=== PATIENT | male | born 1960 | race Caucasian/White ===

== ENCOUNTER 2016-09-02 20:02 | Emergency (ER) | payer OTHER ==
[2016-09-02 22:09] VITALS: BP 154/76
[2016-09-02] MEDS ORDERED: DOXYcycline CAP(*) 100 MG PO ONE (22:09)
--- NOTE | 2016-09-02 22:09 | UC ---
Skin Complaint HPI - HPI Summary HPI Summary: Tick attached to right side of back--- burnt it with a match but was unable to remove it--may have been attached 24-36 hours - History of Current Complaint Chief Complaint: UCSkin Time Seen by Provider: 09/02/16 22:03 Stated Complaint: TICK Hx Obtained From: Patient Onset/Duration: Sudden Onset, Lasting Days - 1, Still Present Skin Exposure Onset/Duration: Days Ago - 1 Timing: Constant Onset Severity: Mild Current Severity: Mild Pain Intensity: 0 Pain Scale Used: 0-10 Numeric Location: Diffuse Character: Redness Aggravating: Nothing Alleviating: Nothing Associated Signs & Symptoms: Positive: Negative Related History: Possible Reaction to: Insect - Allergy/Home Medications Allergies/Adverse Reactions: Allergies Allergy/AdvReac Type Severity Reaction Status Date / Time No Known Allergies Allergy Verified 09/02/16 22:09 Review of Systems Constitutional: Negative Skin: Other - tick right side of mid-lower back Eyes: Negative ENT: Negative Respiratory: Negative Cardiovascular: Negative Gastrointestinal: Negative Genitourinary: Negative Motor: Negative Neurovascular: Negative Musculoskeletal: Negative Neurological: Negative Psychological: Negative All Other Systems Reviewed And Are Negative: Yes PMH/Surg Hx/FS Hx/Imm Hx Previously Healthy: No Endocrine History Of: Denies: Diabetes Cardiovascular History Of: Reports: Hypertension - CONTROLLED WITH DAILY MEDS, Deep Vein Thrombosis - mild blood clot 2009 with heart attack Denies: Congestive Heart Failure Respiratory History Of: Reports: Asthma - HAS ALBUTERAL INH. & LIQ. AVAILABLE GI/ History Of: Denies: Kidney Stones, Renal Disease Psychological History Of: Reports: Anxiety, Depression - NO CURRENT MEDS Cancer History Of: Denies: Prostate Cancer - Surgical History Surgical History: Yes Surgery Procedure, Year, and Place: tonsillectomy ago 13;oral surgeries teeth extraction;heart attack 2009 cardiac cath 2X;vasectomy 1992.MEDIALSTINUM BX BENIGN.03/2013 appendectomy, [facility] 2014. surgury 6 mo later for unmilical hernia repair with mesh. - Family History Known Family History: Positive: None - Social History Occupation: Unemployed Lives: With Family Alcohol Use: None Alcohol Amount: 1-2 DRINKS/WEEK Substance Use Type: Marijuana Substance Use Comment - Amount & Last Used: Marijuana daily Smoking Status (MU): Never Smoked Tobacco Amount Used/How Often: STATES YOU ADULT/CHILD SMOKED MINAMAL Have You Smoked in the Last Year: No Household Exposure Type: Cigarettes - Immunization History Most Recent Influenza Vaccination: years Most Recent Tetanus Shot: UTD Most Recent Pneumonia Vaccination: never Physical Exam Triage Information Reviewed: Yes Appearance: Well-Appearing, Well-Nourished, Obese Vital Signs Reviewed: Yes Eye Exam: Normal Eyes: Positive: Conjunctiva Clear ENT Exam: Normal ENT: Positive: Normal ENT inspection, Hearing grossly normal, Pharynx normal. Negative: Nasal congestion, Nasal drainage, Trismus, Muffled/hoarse voice Dental Exam: Normal Neck exam: Normal Neck: Positive: Supple, Nontender, No Lymphadenopathy Respiratory Exam: Normal Respiratory: Positive: Chest non-tender, Lungs clear, Normal breath sounds, No respiratory distress, No accessory muscle use Cardiovascular Exam: Normal Cardiovascular: Positive: RRR, No Murmur, Pulses Normal, Brisk Capillary Refill Musculoskeletal Exam: Normal Musculoskeletal: Positive: Strength Intact, ROM Intact, No Edema Neurological Exam: Normal Neurological: Positive: Alert, Muscle Tone Normal Psychological Exam: Normal Skin Exam: Other Skin: Positive: Other - tick right side of back Re-Evaluation - Re-Evaluation First Eval Change: Improved - tick removed intact Course/Dx - Course Course Of Treatment: Doxycyline, soap and water wash follow with pcp prn - Differential Diagnoses - Skin Complaint Differential Diagnoses: Cellulitis, Impetigo, Tick Born Illness - Diagnoses Provider Diagnoses: Tick removal Lyme PEP Discharge - Discharge Plan Condition: Stable Disposition: HOME Patient Education Materials: Tick Bite (ED), DASH Eating Plan (ED), Hypertension (ED) Referrals: Wen Cabrera MD [Primary Care Provider] - 1 Week
== END 2016-09-02 22:14 | disposition home or self-care (01) ==
LOC: UCEAST 20:02
DX: S30.860A Insect bite (nonvenomous) of lower back and pelvis, initial encounter (principal); W57.XXXA Bitten or stung by nonvenomous insect and other nonvenomous arthropods, initial encounter; I10 Essential (primary) hypertension; I25.2 Old myocardial infarction; J45.909 Unspecified asthma, uncomplicated; F41.9 Anxiety disorder, unspecified; F32.9 Major depressive disorder, single episode, unspecified; F12.90 Cannabis use, unspecified, uncomplicated; E66.9 Obesity, unspecified; Z86.718 Personal history of other venous thrombosis and embolism
CPT/HCPCS: 99212; A9270-GY; G0463

== ENCOUNTER 2018-08-21 14:02 | Emergency (ER) | payer OTHER ==
[2018-08-21 14:13] VITALS: BP 134/92
[2018-08-21] MEDS ORDERED: HYDROcodone/ACETAMIN 5-325 MG* 1 TAB PO ONE (14:21)
--- NOTE | 2018-08-21 14:32 | UC ---
Hand/Wrist HPI - HPI Summary HPI Summary: left hand injury on Wednesday when he twisted his wrist when a bowl slipped - History Of Current Complaint Chief Complaint: UCUpperExtremity Stated Complaint: LT WRIST INJURY Time Seen by Provider: 08/21/18 14:07 Hx Obtained From: Patient ?: No Mechanism Of Injury: sharp twist of left hand Onset/Duration: Sudden Onset, Lasting Days - 2 Pain Intensity: 10 Pain Scale Used: 0-10 Numeric Character Of Pain: Aching, Throbbing Aggravating Factor(s): Movement Alleviating Factor(s): Nothing Associated Signs And Symptoms: Positive: Swelling, Redness, Bruising Related History: Dominant Hand Right - Allergies/Home Medications Allergies/Adverse Reactions: Allergies Allergy/AdvReac Type Severity Reaction Status Date / Time No Known Allergies Allergy Verified 08/21/18 14:13 PMH/Surg Hx/FS Hx/Imm Hx Previously Healthy: No - Chronic back pain Endocrine History: Dyslipidemia Cardiovascular History: Hypertension - Surgical History Surgical History: Yes Surgery Procedure, Year, and Place: tonsillectomy ago ;oral surgeries teeth extraction;heart attack 2009 cardiac cath 2X;vasectomy 1992.MEDIALSTINUM BX BENIGN.03/2013 appendectomy, [facility] 2014. surgury 6 mo later for unmilical hernia repair with mesh. - Family History Known Family History: Positive: None - Social History Occupation: Disabled Lives: With Family Alcohol Use: Weekly Alcohol Amount: 1-2 drinks per week Substance Use Type: Marijuana Substance Use Comment - Amount & Last Used: Marijuana daily Smoking Status (MU): Former Smoker Amount Used/How Often: STATES YOU ADULT/CHILD SMOKED MINAMAL Have You Smoked in the Last Year: No Household Exposure Type: Cigarettes - Immunization History Most Recent Influenza Vaccination: years Most Recent Tetanus Shot: UTD Most Recent Pneumonia Vaccination: never Review of Systems All Other Systems Reviewed And Are Negative: Yes Constitutional: Positive: Negative Skin: Positive: Bruising - left hand Eyes: Positive: Negative ENT: Positive: Negative Respiratory: Positive: Negative Cardiovascular: Positive: Negative Gastrointestinal: Positive: Negative Genitourinary: Positive: Negative Motor: Positive: Negative Neurovascular: Positive: Negative Musculoskeletal: Positive: Arthralgia - base of left thumb/index finger Neurological: Positive: Negative Psychological: Positive: Negative Is Patient Immunocompromised?: No Physical Exam Triage Information Reviewed: Yes Appearance: Well-Appearing, Well-Nourished, Pain Distress Vital Signs: Initial Vital Signs Temp 98.4 F 08/21/18 14:04 Pulse 77 08/21/18 14:04 Resp 18 08/21/18 14:04 BP 134/92 08/21/18 14:04 Pulse Ox 96 08/21/18 14:04 Vital Signs Reviewed: Yes Eye Exam: Normal Eyes: Positive: Conjunctiva Clear ENT Exam: Normal ENT: Positive: Normal ENT inspection, Hearing grossly normal. Negative: Trismus , Muffled voice, Hoarse voice Dental Exam: Normal Neck exam: Normal Respiratory Exam: Normal Respiratory: Positive: Chest non-tender, Lungs clear, Normal breath sounds, No respiratory distress, No accessory muscle use Cardiovascular Exam: Normal Cardiovascular: Positive: RRR, No Murmur, Pulses Normal, Brisk Capillary Refill Musculoskeletal Exam: Normal Musculoskeletal: Positive: Strength Intact, ROM Intact, Edema @ - left hand Neurological Exam: Normal Neurological: Positive: Alert, Muscle Tone Normal Psychological Exam: Normal Skin Exam: Normal Diagnostics - Radiology No standard instances Radiology Interpretation Completed By: Radiologist - no evidence of fracture Hand/Wrist Course/Dx - Course Course Of Treatment: rice, splint, continue pain meds as rx. follow with ortho if not resolved in 3- 5 days - Differential Dx/Diagnosis Provider Diagnosis: Contusion of hand, left Discharge - Sign-Out/Discharge Documenting (check all that apply): Patient Departure All imaging exams completed and their final reports reviewed: Yes - Discharge Plan Condition: Stable Disposition: HOME Patient Education Materials: Contusion in Adults (ED), R.I.C.E. Treatment (ED) Referrals: Francie Brice MD [Medical Doctor] - 3 Days - Billing Disposition and Condition Condition: STABLE Disposition: Home - Attestation Statements Provider Attestation: I was available for consult. This patient was seen by the DON. The patient was not presented to, seen by, or examined by me. -Konrad
== END 2018-08-21 15:20 | disposition home or self-care (01) ==
LOC: UCEAST 14:02
DX: S60.222A Contusion of left hand, initial encounter (principal); X50.1XXA Overexertion from prolonged static or awkward postures, initial encounter; Y92.9 Unspecified place or not applicable; G89.29 Other chronic pain; M54.9 Dorsalgia, unspecified; E78.5 Hyperlipidemia, unspecified; I10 Essential (primary) hypertension; Z87.891 Personal history of nicotine dependence
CPT/HCPCS: 99213; G0463

== ENCOUNTER 2019-07-20 15:18 | Emergency (ER) | payer OTHER ==
--- NOTE | 2019-07-20 16:15 | ED ---
Influenza-Like Illness - HPI Summary HPI Summary: 59-year-old male presents with cough for past couple days. He returned from [place] and then afterwards developed a fever of 99. He admits to sore throat and some sinus congestion. He feels a felt like because of the sore throat he was having difficulty swallowing. He denies any chest or shortness breath. No abd pain. No nausea or vomiting. No one around him is sick. He states he's been improving and is now feeling a lot better but his primary sent him in for testing. He has history of thrush. Has history of high blood pressure. - History of Current Complaint Chief Complaint: EDGeneral Time Seen by Provider: 07/20/19 16:00 - Allergy/Home Medications Allergies/Adverse Reactions: Allergies Allergy/AdvReac Type Severity Reaction Status Date / Time No Known Allergies Allergy Verified 07/20/19 15:52 Home Medications: Home Medications Albuterol 2.5MG/3ML (0.083%)* [Ventolin 2.5 MG/3 ML NEB.DMITRIY*] 2.5 mg INH Q4H PRN 02/03/17 [History Confirmed 04/14/19] Amlodipine Besylate [Norvasc 5 mg tab] 5 mg PO DAILY 02/03/17 [History Confirmed 04/14/19] Beta Prostate 1 dose PO BID 02/03/17 [History Confirmed 04/14/19] Lisinopril/HCTZ (NF) [Zestoretic (NF)] 1 tab PO DAILY 02/03/17 [ History Confirmed 04/14/19] Simvastatin (NF) [Zocor (NF)] 40 mg PO DAILY 02/03/17 [History Confirmed ] traMADol TAB* [Ultram*] 50 mg PO TID PRN MDD 3 02/03/17 [History Confirmed 04/14] Cyclobenzaprine TAB* [Flexeril 10 MG TAB*] 10 mg PO TID PRN 09/27/17 [History Confirmed 04/14/19] Aspirin [Aspir-Low] 81 mg PO DAILY 03/09/18 [History Confirmed 04/14/19] PMH/Surg Hx/FS Hx/Imm Hx Endocrine/Hematology History: Reports: Other Endocrine/Hematological Disorders - sarcoidosis Denies: Hx Diabetes, Hx Systemic Lupus Erythematosus, Hx Thyroid Disease Cardiovascular History: Reports: Hx Deep Vein Thrombosis - mild blood clot 2010 with heart attack, Hx Hypercholesterolemia, Hx Hypertension - CONTROLLED WITH DAILY MEDS Denies: Hx Aneurysm, Hx Angina, Hx Congenital Heart Disease, Hx Congestive Heart Failure, Other Cardiovascular Problems/Disorders Respiratory History: Reports: Hx Asthma - HAS ALBUTERAL INH. & LIQ. AVAILABLE, Hx Chronic Obstructive Pulmonary Disease (COPD), Other Respiratory Problems/ Disorders - SARCOIDOSIS; MEDIALSTINUM BX GI History: Reports: Hx Gastroesophageal Reflux Disease, Hx Irritable Bowel - MANY YEARS, Other GI Disorders - nausea, diarrhea at times Denies: Hx Ulcer History: Reports: Hx Benign Prostatic Hyperplasia, Other Problems/ Disorders - hematuria Denies: Hx Dialysis, Hx Kidney Stones, Hx Renal Disease Musculoskeletal History: Reports: Hx Arthritis, Hx Back Problems, Hx Orthopedic Injury, Other Musculoskeletal History - lower back pain L4-5, scoliosis Denies: Hx Rheumatoid Arthritis, Hx Scoliosis Sensory History: Reports: Hx Contacts or Glasses Opthamlomology History: Reports: Hx Contacts or Glasses Neurological History: Reports: Hx Headaches, Other Neuro Impairments/Disorders - head injury, dizziness Psychiatric History: Reports: Hx Anxiety, Hx Depression - NO CURRENT MEDS - Cancer History Hx Chemotherapy: No - Surgical History Surgery Procedure, Year, and Place: tonsillectomy ago 13;oral surgeries teeth extraction;heart attack 2009 cardiac cath 2X;vasectomy 1992.MEDIALSTINUM BX BENIGN.03/2013 appendectomy, [facility] 2014. surgury 6 mo later for unmilical hernia repair with mesh. Hx Anesthesia Reactions: No Infectious Disease History: No Infectious Disease History: Denies: Hx Clostridium Difficile, Hx Hepatitis, Hx Human Immunodeficiency Virus (HIV), Hx of Known/Suspected MRSA, Hx Shingles, Hx Tuberculosis, Hx Known/ Suspected VRE, Hx Known/Suspected VRSA, History Other Infectious Disease, Traveled Outside the [place] in Last 30 Days - Family History Known Family History: Positive: None - Social History Alcohol Use: Rare Alcohol Amount: 1-4 drinks per month Substance Use Type: Reports: Marijuana Substance Use Comment - Amount & Last Used: Marijuana daily Smoking Status (MU): Former Smoker Amount Used/How Often: STATES YOU ADULT/CHILD SMOKED MINAMAL Have You Smoked in the Last Year: No Review of Systems Negative: Fever Positive: Sore Throat, Nasal Discharge Negative: Chest Pain Positive: Cough. Negative: Shortness Of Breath All Other Systems Reviewed And Are Negative: Yes Physical Exam Triage Information Reviewed: Yes Vital Signs On Initial Exam: Initial Vitals Temp Pulse Resp BP Pulse Ox 97.7 F 93 18 147/84 95 07/20/19 15:48 07/20/19 15:48 07/20/19 15:48 07/20/19 15:48 07/20/19 15:48 Vital Signs Reviewed: Yes Appearance: Positive: Well-Appearing Skin: Positive: Warm, Dry Head/Face: Positive: Normal Head/Face Inspection Eyes: Positive: Normal, EOMI, CHANELLE, Conjunctiva Clear ENT: Positive: Pharynx normal, TMs normal, Other - thrush present Neck: Positive: Supple, Nontender, No Lymphadenopathy Respiratory/Lung Sounds: Positive: Clear to Auscultation, Breath Sounds Present Cardiovascular: Positive: Normal, RRR Abdomen Description: Positive: Nontender, Soft Bowel Sounds: Positive: Present Male Genital Exam: Positive: High Riding Prostate Neurological: Positive: Normal Psychiatric: Positive: Normal Procedures - Sedation Patient Received Moderate/Deep Sedation with Procedure: No Diagnostics - Vital Signs Vital Signs Temp Pulse Resp BP Pulse Ox 07/20/19 15:48 97.7 F 93 18 147/84 95 - Laboratory Lab Statement: Any lab studies that have been ordered have been reviewed, and results considered in the medical decision making process. Flu Symptom Course/Dx - Course Course Of Treatment: 59-year-old male presents with cough for past couple days. He returned from [place] and then afterwards developed a fever of 99. He admits to sore throat and some sinus congestion. He feels a felt like because of the sore throat he was having difficulty swallowing. He denies any chest or shortness breath. No abd pain. No nausea or vomiting. No one around him is sick. He states he's been improving and is now feeling a lot better but his primary sent him in for testing. He has history of thrush. Has history of high blood pressure. On exam pharynx normal. Has thrush noted throughout the mouth. No lymphadenopathy noted. Lungs clear to auscultation. We'll test for covid. Told to continue isolating. patient does not want treatment for thrush. Patient understands and agrees with the plan. - Diagnoses Differential Diagnosis/HQI/PQRI: Positive: Influenza, Pneumonia, Other - covid Provider Diagnoses: Viral syndrome, Thrush Discharge ED - Sign-Out/Discharge Documenting (check all that apply): Patient Departure - Discharge Plan Condition: Good Disposition: HOME Patient Education Materials: Viral Syndrome (ED) Forms: COVID-19 Tested & Isolation Referrals: Wen Cabrera MD [Primary Care Provider] - Additional Instructions: You have been tested for coronavirus. The department of health will contact you with results when available and with any additional instruction. You should stay in your house and self quarantine. You should wear a mask if you're outside of your personal room. We encourage handwashing as well as limited contact with other people. Use tyenlol every 6 hours for fever Drink plenty of fluids and rest Return to ED if develop severe shortness of breath or any new or worsening symptoms - Billing Disposition and Condition Condition: GOOD Disposition: Home
[2019-07-20 16:34] VITALS: BP 145/111
== END 2019-07-20 16:35 | disposition home or self-care (01) ==
LOC: ED 15:18
DX: B34.9 Viral infection, unspecified (principal); B37.9 Candidiasis, unspecified; J02.9 Acute pharyngitis, unspecified; Z79.899 Other long term (current) drug therapy; Z86.718 Personal history of other venous thrombosis and embolism; E78.00 Pure hypercholesterolemia, unspecified; I10 Essential (primary) hypertension; N40.0 Benign prostatic hyperplasia without lower urinary tract symptoms; K21.9 Gastro-esophageal reflux disease without esophagitis; Z87.891 Personal history of nicotine dependence; Z20.828 Contact with and (suspected) exposure to other viral communicable diseases
CPT/HCPCS: 87635; 99282; G2023